=== PATIENT | female | born 1990 | race Caucasian/White ===

== ENCOUNTER 2022-08-21 11:13 | Emergency (ER) | payer MEDICAID, OTHER ==
[2022-08-21] MEDS ORDERED: predniSONE 20 MG TAB ONE (11:57)
== END 2022-08-21 12:03 | disposition home or self-care (01) ==
LOC: MADERS 11:13
DX: J06.9 Acute upper respiratory infection, unspecified (principal); H92.02 Otalgia, left ear; E55.9 Vitamin D deficiency, unspecified; Z79.899 Other long term (current) drug therapy
CPT/HCPCS: 99283; J7512